=== PATIENT | female | born 1975 | race Caucasian/White ===

== ENCOUNTER → 2016-11-11 | Outpatient (CLI) | payer OTHER ==
[~2016-11-11] MED LIST: ALPR1TAB3 PO; CARI350T28 PO; ESCI10TA17 PO; IBUP-1459 PO; LAMO25TA PO; METH5TAB2 PO; ONDA4TAB46 PO; PREG1CAP70 PO; PRLSR20 PO; QUET1TAB32 PO; TOPI100T20 PO
[2016-11-11 17:02] LABS: ALT/SGPT 16 U/L (12-78); BLOOD UREA NITROGEN 7 mg/dl (7-18); BUN/CREATININE RATIO 9.2 (10-20); CALCIUM 8.7 mg/dl (8.5-10.1); CARBON DIOXIDE 26 mmol/L (21-32); CHLORIDE 103 mmol/L (98-107); CHOLESTEROL 134 mg/dl (0-200); CREATININE 0.75 mg/dl (0.60-1.20); GLUCOSE 81 mg/dl (70-99); POTASSIUM 3.9 mmol/L (3.5-5.1); SODIUM 138 mmol/L (136-145); TRIGLYCERIDES 71 mg/dl (0-150); VERY LOW DENSITY LIPOPROT CALC 14 mg/dl
[2016-11-11 17:10] LABS: HEMATOCRIT 37.2 % (37-47); MEAN CELL VOLUME 93.5 fL (80-100); MEAN CORPUSCULAR HEMOGLOBIN 32.4 pg (25-34); MEAN CORPUSCULAR HGB CONC 34.7 g/dl (32-36); PLATELET COUNT 175 K/uL (130-400); RED BLOOD COUNT 3.98 M/uL (4.2-5.4)
[2016-11-11 17:12] LABS: ALKALINE PHOSPHATASE 77 U/L (45-117); AST/SGOT 22 U/L (15-37); CHOLESTEROL/HDL RATIO 3.1; HDL CHOLESTEROL 43 mg/dl; LDL CHOLESTEROL CALCULATED 77 mg/dl
[2016-11-11 18:02] LABS: BASO % 0.3 %; BASO ABS # 0.02 K/uL (0-0.2); COMPLETE YES; IG% 0.3 %; LYMPH % 41.4 %; LYMPH ABS # 2.44 K/uL (1.2-3.4); MONO % 8.1 %; NEUT % 47.9 %
== END | disposition home or self-care (01) ==
LOC: C.LABBFT 12:21
PROVIDERS: ATTEND Internal Medicine
DX: R11.2 Nausea with vomiting, unspecified (principal); Z13.220 Encounter for screening for lipoid disorders; R10.9 Unspecified abdominal pain

== ENCOUNTER → 2017-08-11 | Outpatient (CLI) | payer OTHER | END | disposition home or self-care (01) | LOC: C.PAPS 16:37 | PROVIDERS: ATTEND Obstetrics & Gynecology | DX: Z12.4 Encounter for screening for malignant neoplasm of cervix (principal) ==

== ENCOUNTER → 2017-09-13 | Outpatient (CLI) | payer OTHER ==
[~2017-09-13] MED LIST changes: +GABA-1220 PO; +GABA600T PO; +LAMO200T35 PO; +LCHC12280 TOP; +METHADONE PO; +MTR600XX PO; +ONDA8TAB12 PO; +TOPI50TA16 PO; +VALA500T41 PO; +VALA500T60 PO; +VNTHFA/IN INH
[2017-09-13 09:44] LABS: BASO % 0.1 %; BASO ABS # 0.01 K/uL (0-0.2); EOS % 1.2 %; EOS ABS # 0.09 K/uL (0-0.5); HEMATOCRIT 36.8 % (37-47); HEMOGLOBIN 12.1 g/dL (12.0-16.0); IG# 0.02 K/uL (0.00-0.02); LYMPH % 18.4 %; LYMPH ABS # 1.37 K/uL (1.2-3.4); MEAN CELL VOLUME 97.4 fL (80-100); MEAN CORPUSCULAR HGB CONC 32.9 g/dl (32-36); MEAN PLATELET VOLUME 9.6 fL (7.4-10.4); MONO % 7.9 %; MONO ABS # 0.59 K/uL (0.11-0.59); NEUT % 72.1 %; NEUT ABS # 5.38 K/uL (1.4-6.5); PLATELET COUNT 222 K/uL (130-400); RED CELL DISTRIBUTION WIDTH CV 13.6 % (11.5-14.5); RED CELL DISTRIBUTION WIDTH SD 48.2 fL (36.4-46.3); WHITE BLOOD COUNT 7.46 K/uL (4.8-10.8)
[2017-09-13 09:58] LABS: ALT/SGPT 12 U/L (12-78); AST/SGOT 10 U/L (15-37); BLOOD UREA NITROGEN 9 mg/dl (7-18); CALCIUM 9.2 mg/dl (8.5-10.1); CARBON DIOXIDE 33 mmol/L (21-32); CREATININE 0.71 mg/dl (0.60-1.20); GLUCOSE 95 mg/dl (70-99); POTASSIUM 4.2 mmol/L (3.5-5.1); SODIUM 135 mmol/L (136-145)
[2017-09-13 10:00] LABS: ALKALINE PHOSPHATASE 107 U/L (45-117); TOTAL PROTEIN 7.2 gm/dl (6.4-8.2)
== END | disposition home or self-care (01) ==
LOC: C.LAB1850 08:47
PROVIDERS: ATTEND Physician Assistant
DX: H51.8 Other specified disorders of binocular movement (principal)

== ENCOUNTER → 2017-10-26 | Day surgery (SDC) | payer OTHER ==
[~2017-10-26] MED LIST changes: -GABA600T PO; -LAMO200T35 PO; -METHADONE PO; -MTR600XX PO; -ONDA8TAB12 PO; -TOPI50TA16 PO; -VALA500T41 PO
--- NOTE | 2017-10-26 10:18 | PAT Medication Instructions ---
Service Date Oct 26, 2017. Current Home Medication List Albuterol Hfa (Ventolin Hfa), 2-4 PUFFS INH Q6H PRN for SOB/Wheezing Alprazolam (Xanax), 1 MG PO TID PRN Carisoprodol (Soma), 350 MG PO TID Escitalopram (Lexapro), 30 MG PO QAM Gabapentin (Neurontin), 1,200 MG PO TID Ibuprofen (Motrin), 400 MG PO Q4 PRN Lactic Acid (Ammonium Lactate Cream 12%), 1 DOSE TOP UD PRN for PRN Lamotrigine (Lamictal), 75 MG PO BID Methadone Hcl (Dolophine), MG PO UD Ondansetron Hcl (Zofran), 4 MG PO Q8 PRN Pregabalin (Lyrica), 150 MG PO BID Topiramate (Topamax), 100 MG PO QAM Valacyclovir (Valtrex), 1,000 MG PO BID PRN for PRN Medication Instructions For Your Scheduled Surgery - Check with surgeon and prescribing physician for instructions: Methadone Hcl (Dolophine), MG PO UD - Check with surgeon for instructions: Ibuprofen (Motrin), 400 MG PO Q4 PRN - Hold the following medications 24 hours prior to surgery: Lactic Acid (Ammonium Lactate Cream 12%), 1 DOSE TOP UD PRN for PRN - Hold the following medications the morning of surgery: Carisoprodol (Soma), 350 MG PO TID - Take the following medications the morning of surgery with a sip of water: Valacyclovir (Valtrex), 1,000 MG PO BID PRN for PRN (if needed) Pregabalin (Lyrica), 150 MG PO BID Topiramate (Topamax), 100 MG PO QAM Ondansetron Hcl (Zofran), 4 MG PO Q8 PRN (if needed) Lamotrigine (Lamictal), 75 MG PO BID Escitalopram (Lexapro), 30 MG PO QAM Gabapentin (Neurontin), 1,200 MG PO TID Albuterol Hfa (Ventolin Hfa), 2-4 PUFFS INH Q6H PRN for SOB/Wheezing (if needed) Alprazolam (Xanax), 1 MG PO TID PRN (if needed) - Take the following medications as scheduled the night before surgery: Valacyclovir (Valtrex), 1,000 MG PO BID PRN for PRN (if needed) Pregabalin (Lyrica), 150 MG PO BID Ondansetron Hcl (Zofran), 4 MG PO Q8 PRN (if needed) Lamotrigine (Lamictal), 75 MG PO BID Gabapentin (Neurontin), 1,200 MG PO TID Carisoprodol (Soma), 350 MG PO TID Albuterol Hfa (Ventolin Hfa), 2-4 PUFFS INH Q6H PRN for SOB/Wheezing (if needed) Alprazolam (Xanax), 1 MG PO TID PRN (if needed) If you have any questions please call us at [phone] or [phone] or [phone]
--- NOTE | 2017-10-31 10:16 | EDITING REQUIRED CODING QUERY ---
DIAGNOSIS NEEDED Please provide diagnosis below for the reason for this visit on 10/26/17: DIAGNOSIS: Bilateral labial hypertrophy Vulvar lesions Thank you for your assistance, Jaquelin Montenegro - Rf Design Engineer
== END | disposition home or self-care (01) ==
LOC: C.ACU 09:39
PROVIDERS: ATTEND Obstetrics & Gynecology
DX: N90.60 Unspecified hypertrophy of vulva (principal); N90.89 Other specified noninflammatory disorders of vulva and perineum

== ENCOUNTER → 2017-12-04 | Day surgery (SDC) | payer OTHER ==
[2017-11-16 11:36] VITALS: Ht 176.5 cm; Wt 63.6 kg
[~2017-12-04] VITALS: Ht 176.5 cm; Wt 63.6 kg
[~2017-12-04] MED LIST changes: +ATROPINE SULFATE 0.1 MG/ML 5ML SYR IV PRN; +BENZOCAINE 20% AER SPR 82.5 GM CAN EXT PRN; +DEXAMETHASONE SOD INJ 4 MG/ML VIAL ONE; +EpHEDrine SULFATE INJ 50 MG/ML AMP IV PRN; -GABA-1220 PO; +GABA600T PO; +HYDROmorphone INJ 1 MG/ML SYR IV PRN; -IBUP-1459 PO; +IBUPROFEN 600 MG TAB PO PRN; +KETOROLAC TROMETHAMINE 30 MG/ML VIAL ONE; +LACTATED RINGER'S 1000ML 1,000 ML IV SCH; +LAMO200T35 PO; -LAMO25TA PO; -LCHC12280 TOP; +LIDOCAINE HCL 1% 20 ML VIAL ONE; +LIDOCAINE HCL 2% 2 ML VIAL (20MG/ML) ONE; +LIDOCAINE/EPINEPHRINE 1% 20 ML VIAL ONE; -METH5TAB2 PO; +METHADONE PO; +MIDAZOLAM HCL 1 MG/ML 2ML VIAL ONE; +MTR600XX PO; +NEOMYCIN/POLYMYX/BACITR OINT 15 GM TUBE ONE; -ONDA4TAB46 PO; +ONDA8TAB12 PO; +ONDANSETRON INJ 2 MG/ML 2 ML VIAL IV PRN; +ONDANSETRON INJ 2 MG/ML 2 ML VIAL ONE; +PHENYLEPHRINE 100MCG/ML 5ML SYR IV PRN; -PREG1CAP70 PO; -PRLSR20 PO; +PROMETHAZINE HCL INJ 12.5 MG in SODIUM CHLORIDE 0.9% 50ML 50 ML IV PRN; +PROMETHAZINE HCL INJ 25 MG in SODIUM CHLORIDE 0.9% 50ML 50 ML IV PRN; +PROPOFOL IV EMULSION 10 MG/ML 20 ML VIAL IV ONE; -QUET1TAB32 PO; +SODIUM CHLORIDE 0.9% 1000ML 1,000 ML IV SCH; -TOPI100T20 PO; +TOPI50TA16 PO; +VALA500T39 PO; -VALA500T60 PO
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
--- NOTE | 2017-12-04 08:54 | [facility] Post Operative Brief Note ---
Immediate Operative Summary Operative Date Dec 04, 2017. Pre-Operative Diagnosis Hypertrophy of Labia, Skin tags, Mole on Mons Pubis Post-Operative Diagnosis Same Procedure(s) Performed Vulvectomy; Removal Of Skin Tags, Removal Of Lesion Of Mons Pubis Surgeon Dr. Manzo Caustic Cresylate Shift Superintendent Surgeon(s) Dr. Pedro Luis Cerna, PGY-2 Estimated Blood Loss 5ML Findings Consistent with Post-Op Diagnosis Specimens A: Mole on Mons Drains None Anesthesia Type General Complication(s) none Disposition Accompanied Pt To Recovery: yes Disposition: Recovery Room / PACU
--- NOTE | 2017-12-04 09:06 | Discharge Instructions ---
Discharge Instructions Date of Service Dec 04, 2017. Admission Reason for Admission: Hypertrophy Of Labia, Skin Tags, Vulvuar Lesion Discharge Discharge Diagnosis / Problem: labial erduction, removal of skin tags & mole Discharge Goals Goal(s): Routine recovery after surgery Medications Continue Dispensed Medications: dermaplast Activity Recommendations Activity Limitations: per Instructions/Follow-up section . Instructions / Follow-Up Instructions / Follow-Up ACTIVITY RECOMMENDATIONS: Activity: * During the first week at home, your activity should be similar to that done at the hospital prior to discharge. Your primary activity is in-house walking interspersed with rest periods. Preparing lunch for yourself is acceptable. You may go up and down stairs. Try to stay up progressively longer periods of time to help regain your strength more quickly. * .Keep ice on the labia for 24 hours. You may use Dermaplast spray as needed for discomfort especially after using the bathroom. Wash the area gently with warm soapy water daily & pat dry or use hairdryer on low setting. You may use vaseline or Bactitracin ointment to keep the area from sticking to your clothing or pad. * Ibuprofen 600mg every 4-6 hours is fine for post-op pain. * Sexual intercourse can usually be resumed about 6 weeks after surgery depending on findings at your post-operative examinations. Bathing: * Showers or baths are permissible. Sitting in four to six inches of hot water (sitz bath) is often comforting after vaginal surgery and is permitted at any time. A sitz bath at bedtime can also assist in a better night's sleep. SPECIAL CARE INSTRUCTIONS: The major discomforts related to surgery have now passed and progressive improvement will occur. The tight uncomfortable feeling in the abdominal, pelvic and back area will gradually fade away. Fatigue may take the longest to disappear; your energy level may take several weeks to return to normal. At times you may become frustrated or impatient over not feeling as well or doing as much as you'd like , but this is a normal reaction to surgery and will pass with time. Vaginal Discharge: * Odorous, blood-tinged or brownish discharge may be present for one to three weeks after surgery. * Pads should be used and not tampons. * Stitches may be passed vaginally. * Bleeding may be somewhat increased approximately two weeks after surgery, which is related to the stitches dissolving. * If bleeding becomes free flowing, notify our office at . Bowel Care: * Constipation after surgery is very common. Foods that promote bowel activity (bran, fruit, prune juice) should be included in your diet. * A capsule, DIALOSE-PLUS, can be purchased without a prescription and can be taken daily (one or two capsules) to assist in promoting bowel activity. * If you have had vaginal surgery involving your rectum, we will discuss this when discharged from the hospital. Temperature: * Any fever above 100.4 degrees F should be reported to our office at . FOLLOW-UP: Post-Operative Appointments: * Individual instructions will have been given about the timing of your first examination, but this is usually at the end of the second week home. * You will need to call the office at soon after discharge to make the appointment for your post-op check-up if it has not already been scheduled. * Additional information regarding activity, sexual intercourse and when to return to work will be given at this appointment. WE WISH YOU A SPEEDY RECOVERY! Current Hospital Diet Patient's current hospital diet: Discharge Diet Recommended Diet: Regular Diet Procedures Procedures Performed: Vulvectomy; Removal Of Skin Tags, Removal Of Lesion Of Mons Pubis Pending Studies Studies pending at discharge: no Medical Emergencies . Who to Call and When: Medical Emergencies: If at any time you feel your situation is an emergency, please call 911 immediately. . Non-Emergent Contact Non-Emergency issues call your: Industrial Security Analyst . . "Provider Documentation" section prepared by Isamar Garza .
[2017-12-04] MEDS: FENTANYL CITRATE INJ 50 MCG/1 ML 2 ML VIAL IV PRN ×2 (09:07→09:17)
--- NOTE | 2017-12-04 09:31 | OPERATIVE REPORT ---
DATE OF OPERATION: 12/04/2017 SURGEON: Isamar Amin MD [employer] SUPERVISOR: Pedro Luis Cerna, PGY-2. PREOPERATIVE DIAGNOSES: Labial hypertrophy, symptomatic skin tags and a mole on the mons pubis. POSTOPERATIVE DIAGNOSES: Same. PROCEDURES: A bilateral labial reduction, removal of skin tags and a mole on mons pubis. ANESTHESIA: General. BLOOD LOSS: 5 mL HISTORY: The patient is a 42-year-old nulligravid white female who has had a history of increasingly symptomatic labial hypertrophy bilaterally. The patient is requesting definitive therapy at this time. She also has several skin tags in the crural fold, which are getting irritated because of clothing as well as a mole on the mons pubis for the same reason. She is requesting removal of these at the time of the surgery. She understands the risks of procedure and is willing to proceed. GROSS FINDINGS: Bilateral labia are hypertrophied. There are 2 skin tags in the left crural fold as well as a 2-3 mm mole on the mons pubis. Pelvic exam, uterus is normal size, mobile, anteverted and anteflexed. There are no adnexal masses present. Otherwise, the vagina and cervix are within normal limits. DESCRIPTION OF PROCEDURE: After the patient received adequate general anesthetic, she was prepped and draped in usual sterile fashion. The skin tags were grasped with Adson and removed with Metzenbaum scissors as was the mole on the mons pubis. The surgical site hemostasis was controlled with the Bovie. At this point, attention was turned to the labia. The left labia minora was grasped with Allis clamps and the redundant tissue removed with Metzenbaum scissors. The bleeding at the bed of the labia was controlled with the Bovie. Skin edges were reapproximated using a subcuticular stitch of 3-0 chromic in the usual fashion. The right labia minora was grasped with the Allis clamps and the redundant tissue was removed as well. Hemostasis was controlled with the Bovie. Once this was done, the skin edges were reapproximated using a subcuticular stitch of 3-0 chromic. Pressure was used to continue hemostasis to the surgical sites. Lidocaine 1% was injected into the surgical site as well for additional anesthetic. The patient tolerated the procedure well. Only the mole from the mons pubis was sent for pathology. I attest to the content of the Intraoperative Record and any orders documented therein. Any exception s are noted below.
[2017-12-04 09:50] VITALS: TEMP 36.3
--- NOTE | 2017-12-04 10:27 | Anesthesia Progress Nt - [facility] ---
Anesthesia Post Op Note Date & Time Dec 04, 2017 at 10:27 Vital Signs Pain Intensity: 4 Vital Signs Past 12 Hours Date Time Temp Pulse Resp B/P (MAP) Pulse Ox O2 Delivery O2 Flow Rate FiO2 12/04/17 10:24 69 16 111/77 (88) 100 Room Air 12/04/17 09:50 36.3 76 16 113/74 (87) 95 Room Air 12/04/17 09:36 106/84 12/04/17 09:36 36.4 78 12 106/84 95 Room Air 12/04/17 09:32 72 10 12/04/17 09:32 72 10 96 12/04/17 09:31 121/83 12/04/17 09:27 72 3 12/04/17 09:27 72 3 96 12/04/17 09:26 126/81 12/04/17 09:22 72 6 96 12/04/17 09:22 72 6 12/04/17 09:21 126/83 12/04/17 09:20 72 12 96 12/04/17 09:20 73 12 12/04/17 09:16 125/83 12/04/17 09:15 81 20 97 12/04/17 09:15 81 20 12/04/17 09:11 132/97 12/04/17 09:10 85 13 12/04/17 09:10 85 13 98 12/04/17 09:06 121/82 12/04/17 09:05 82 12/04/17 09:05 81 100 12/04/17 09:01 127/87 12/04/17 09:00 90 16 99 12/04/17 09:00 87 16 12/04/17 08:57 116/73 12/04/17 08:55 36.4 82 12 116/73 99 Diffusion Mask 6 12/04/17 06:54 36.6 80 16 101/67 (78) 94 Room Air Notes Mental Status: alert / awake / arousable, participated in evaluation Pt Amnestic to Procedure: Yes Nausea / Vomiting: adequately controlled Pain: adequately controlled Airway Patency, RR, SpO2: stable & adequate BP & HR: stable & adequate Hydration State: stable & adequate Anesthetic Complications: no major complications apparent
[2017-12-04 10:47] VITALS: BP 115/72; PULSE 72; O2SAT 98
== END | disposition home or self-care (01) ==
LOC: X.SURG 06:31
PROVIDERS: ATTEND Obstetrics & Gynecology
DX: N90.60 Unspecified hypertrophy of vulva (principal); L91.8 Other hypertrophic disorders of the skin; D22.9 Melanocytic nevi, unspecified; J44.9 Chronic obstructive pulmonary disease, unspecified; J45.909 Unspecified asthma, uncomplicated; F41.9 Anxiety disorder, unspecified; F32.9 Major depressive disorder, single episode, unspecified; G40.209 Localization-related (focal) (partial) symptomatic epilepsy and epileptic syndromes with complex partial seizures, not intractable, without status epilepticus; Z86.19 Personal history of other infectious and parasitic diseases; Z88.6 Allergy status to analgesic agent; Z98.890 Other specified postprocedural states; Z79.899 Other long term (current) drug therapy